=== PATIENT | female | born 1955 | race Caucasian/White ===

== ENCOUNTER 2023-10-07 17:49 | Emergency (ER) | payer BC ==
[~2023-10-07] VITALS: Ht 162.6 cm; Wt 59.0 kg
[2023-10-07] MEDS ORDERED: LEVO75TA PO (18:23)
[2023-10-07] MEDS ORDERED: AMOXICILLIN-CLAVUL 500-125MG TABLET ONE (19:01)
[2023-10-07] MEDS ORDERED: TDAP DIPH,PERTUSS,TET VAC/PF 0.5 ML DISP.SYRIN IM ONE (19:01)
[2023-10-07] MEDS ORDERED: IBUPROFEN 600 MG TABLET ONE (19:01)
[2023-10-07] MEDS: TDAP DIPH,PERTUSS,TET VAC/PF 0.5 ML DISP.SYRIN IM ONE (19:15)
[2023-10-07] MEDS: IBUPROFEN 600 MG TABLET PO ONE (19:15)
[2023-10-07] MEDS: AMOXICILLIN-CLAVUL 500-125MG TABLET PO ONE (19:15)
[2023-10-07] MEDS ORDERED: NEOMY/BACITRA/POLYMYXIN B OINT UD PACKET TP ONE (19:17)
[2023-10-07] MEDS: NEOMY/BACITRA/POLYMYXIN B OINT UD PACKET TP ONE (19:22)
[2023-10-07] MEDS ORDERED: AMOX-427 PO (19:39)
[2023-10-07 19:52] VITALS: BP 145/90; TEMP 97.8; O2SAT 99
== END 2023-10-07 19:58 | disposition home or self-care (01) ==
LOC: ER 17:57
DX: S50.11XA Contusion of right forearm, initial encounter (principal); R03.0 Elevated blood-pressure reading, without diagnosis of hypertension; Z79.899 Other long term (current) drug therapy; W54.0XXA Bitten by dog, initial encounter; Y93.89 Activity, other specified; Y92.89 Other specified places as the place of occurrence of the external cause; Y99.8 Other external cause status
CPT/HCPCS: 73090; 90715; A4606; A4663